=== PATIENT | female | born 1995 | race Caucasian/White ===

== ENCOUNTER 2017-12-07 21:54 | Emergency (ER) | payer OTHER ==
[~2017-12-07] VITALS: Ht 165.1 cm; Wt 51.3 kg
[2017-12-07 22:03] VITALS: BP 121/69
--- NOTE | 2017-12-07 22:10 | NUR ---
PT C/O HEADACHE X 6HRS AND TOOK TYLENOL WITHOUT RELIEF. PT AMBULATED TO BED #6.
[2017-12-07] MEDS ORDERED: ONDANSETRON 4 MG TAB.RAPDIS ONE (22:37)
[2017-12-07] MEDS ORDERED: oxyCODONE/APAP (5/325 MG) 1 UDTAB TABLET ONE (22:37)
--- NOTE | 2017-12-07 22:41 | NUR ---
PT REC'D MEDICATION ORDERED.
--- NOTE | 2017-12-07 22:47 | NUR ---
Patient discharged to home in stable condition. Written and verbal after care instructions given. Patient verbalizes understanding of instruction AND RX. PT STATED THAT SHE WAS FEELING A BIT BETTER, BUT WANTED TO GET HOME TO GET SOME REST. PT AMBULATED OUT WITH A STEADY GAIT. VSS. PT'S BOYFRIEND IS DRIVING PT HOME.
[2017-12-07] MEDS ORDERED: ONDANSETRON 4 MG TAB.RAPDIS SL ONE (23:00)
[2017-12-07] MEDS ORDERED: oxyCODONE/APAP (5/325 MG) 1 UDTAB TABLET PO ONE (23:00)
== END 2017-12-07 22:51 | disposition home or self-care (01) ==
LOC: ER 21:54
DX: R51 Headache (principal)
CPT/HCPCS: A4606; Q0162; Z7610